=== PATIENT | male | born 1970 | race Caucasian/White ===

== ENCOUNTER 2022-08-07 09:15 | Emergency (ER) | payer OTHER ==
[~2022-08-07] VITALS: Ht 177.8 cm; Wt 90.7 kg
[2022-08-07 09:27] VITALS: BP 161/93
--- NOTE | 2022-08-07 09:34 | NUR ---
ACCUCHECK: 265 DIALYSIS AV SHUNT-LEFT UPPER ARM M-W-F
[2022-08-07] MEDS ORDERED: ONDANSETRON 4 MG/2 ML VIAL IVP ONE (09:50)
[2022-08-07] MEDS ORDERED: NACL 0.9% 1,000 ML IV ONE (09:50)
[2022-08-07 10:07] LABS: BASOPHILS # (AUTO) 0.1 K/uL (0.00-0.22); BASOPHILS % (AUTO) 0.5 % (0.0-2.0); EOSINOPHILS % (AUTO) 0.2 % (0.0-4.0); HEMATOCRIT 37.3 % (36-52); HEMOGLOBIN 12.1 g/dL (12.0-18.0); LYMPHOCYTES # (AUTO) 0.9 K/uL (2.0-11.5); LYMPHOCYTES % (AUTO) 9.4 % (20.5-51.1); MEAN CORPUSCULAR HEMOGLOBIN 31 pg (27-31); MEAN CORPUSCULAR HGB CONC 33 g/dL (33-37); MEAN CORPUSCULAR VOLUME 93.7 fL (80-94); MONOCYTES # (AUTO) 0.5 K/uL (0.8-1.0); MONOCYTES % (AUTO) 5.1 % (1.7-9.3); NEUTROPHILS # (AUTO) 8.3 K/uL (1.8-7.7); NEUTROPHILS % (AUTO) 84.8 % (42.2-75.2); PLATELET COUNT (AUTO) 326 K/uL (140-450); RED BLOOD CELL COUNT(AUTO) 3.98 MIL/uL (4.20-6.10); RED CELL DISTRIBUTION WIDTH 15.1 % (11.6-13.7); WHITE BLOOD COUNT (AUTO) 9.8 K/uL (4.8-10.8)
[2022-08-07 10:22] LABS: ALBUMIN 3.6 g/dL (3.4-5.0); ANION GAP 19.1 (8-16); CARBON DIOXIDE 25.5 mmol/L (21-32); POTASSIUM 5.6 mmol/L (3.5-5.1); TOTAL BILIRUBIN 0.3 mg/dL (0.0-1.0)
[2022-08-07 10:25] LABS: CREATININE 11.9 mg/dL (0.6-1.3)
[2022-08-07] MEDS ORDERED: ONDA-188 SL ×2 (10:57→12:08)
== END 2022-08-07 12:00 | disposition home or self-care (01) ==
LOC: MED 09:15 → EDBD 09:15 → MED 12:00
DX: R11.10 Vomiting, unspecified (principal); I10 Essential (primary) hypertension; E11.9 Type 2 diabetes mellitus without complications; N18.6 End stage renal disease; Z99.2 Dependence on renal dialysis; Z79.899 Other long term (current) drug therapy; Z79.4 Long term (current) use of insulin
CPT/HCPCS: 36415; 80053; 82948; 83690; 85025; 93005; 96374; 99284; J2405